=== PATIENT | male | born 1995 | race Native Hawaiian/Other Pacific Islander ===

== ENCOUNTER 2016-11-04 01:37 | Emergency (ER) | payer OTHER ==
[2016-11-04 01:46] VITALS: TEMP 98.4
--- NOTE | 2016-11-04 01:57 | C.PDOC ---
History Of Present Illness 20 y/o male arrives in the ED for suicidal ideation. The patient had sent a text to his friend that he is suicidal and the friend dialed 911. Patient states "THEY SAID I WAS SUICIDAL BUT I'M REALLY NOT". Patient admits to ETOH use today, last drink was several hours ago. The patient denies being suicidal or drug abuse. "THEY SAID I WAS SUICIDAL BUT I'M REALLY NOT". PS WAS TEXTING THAT HE IS SUICIDAL AND FRIEND CALLED 911. +ETOH, LAST DRINK SEV HRS AGO. DENIES BEING SUICIDAL, DRUG USE EXAM PSYCH CALM COOPERATIVE NO ACTIVE SI, PSYCHOSIS NO ACUTE INTOX REMAINDER NEG Time Seen by Provider: 11/04/16 01:47 Chief Complaint (Nursing): Psychiatric Evaluation History Per: Patient History/Exam Limitations: no limitations Onset/Duration Of Symptoms: Hrs Current Symptoms Are (Timing): Still Present Suicide/Self Injury Attempted (Context): None Modifying Factor(s): None Recent travel outside of the [place]: No Past Medical History Reviewed: Historical Data, Nursing Documentation, Vital Signs Vital Signs: Last Vital Signs Temp 98.4 F 11/04/16 01:43 Pulse 84 11/04/16 06:14 Resp 18 11/04/16 06:14 BP 149/82 11/04/16 06:14 Pulse Ox 99 11/04/16 06:14 - Medical History PMH: Anxiety, Bipolar Disorder Surgical History: No Surg Hx Family History: States: No Known Family Hx - Social History Hx Alcohol Use: Yes Hx Substance Use: No - Immunization History Hx Tetanus Toxoid Vaccination: No Hx Influenza Vaccination: No Hx Pneumococcal Vaccination: No Review Of Systems Except As Marked, All Systems Reviewed And Found Negative. Constitutional: Negative for: Fever, Chills, Sweats Cardiovascular: Negative for: Light Headedness Respiratory: Negative for: Cough, Shortness of Breath Gastrointestinal: Negative for: Nausea, Vomiting Neurological: Negative for: Headache, Dizziness Psych: Negative for: Suicidal ideation Physical Exam - Physical Exam Appears: Non-toxic, No Acute Distress, Other (PSYCH CALM COOPERATIVE NO ACTIVE SI, PSYCHOSIS NO ACUTE INTOX) Skin: Normal Color, Warm, Dry Head: Atraumatic, Normacephalic Oral Mucosa: Moist Neck: Supple Chest: Symmetrical Cardiovascular: Rhythm Regular Respiratory: Normal Breath Sounds, No Rales, No Rhonchi Gastrointestinal/Abdominal: Soft, No Tenderness, No Guarding, No Rebound Extremity: Normal ROM, Capillary Refill (<2sec.) Neurological/Psych: Oriented x3, Normal Speech, Normal Cognition Gait: Steady ED Course And Treatment - Laboratory Results Result Diagrams: 11/04/16 02:15 11/04/16 02:15 O2 Sat by Pulse Oximetry: 98 (RA) Reevaluation Time: 03:29 Reassessment Condition: Unchanged Medical Decision Making Medical Decision Making: Plain * UA * blood work * , drug test * crisis is notified Disposition Counseled Patient/Family Regarding: Diagnosis, Need For Followup - Disposition Referrals: [facility] [Outside] [facility] [Outside] [facility] [Provider Group] Disposition: HOME/ ROUTINE Disposition Time: 06:15 Condition: IMPROVED Instructions: Bipolar Disorder (ED) Forms: [employer] (Amharic) - Clinical Impression Clinical Impression: Alcohol intoxication, Suicidal ideation, Bipolar disorder - Scribe Statement The provider has reviewed the documentation as recorded by the Scribe (Mireya Ann) Provider Attestation: All medical record entries made by the Scribe were at my direction and personally dictated by me. I have reviewed the chart and agree that the record accurately reflects my personal performance of the history, physical exam, medical decision making, and the department course for this patient. I have also personally directed, reviewed, and agree with the discharge instructions and disposition.
[2016-11-04 02:21] LABS: RBC URINE < 1 /hpf (0-3); URINE BILIRUBIN NEGATIVE (NEGATIVE); URINE BLOOD NEGATIVE (NEGATIVE); URINE COLOR Yellow (YELLOW); URINE GLUCOSE (UA) NORMAL (Normal); URINE KETONE NEGATIVE (NEGATIVE); URINE LEUKOCYTE ESTERASE NEG Leu/uL (Negative); URINE PROTEIN NEGATIVE (NEGATIVE); URINE UROBILINOGEN NORMAL mg/dL (0.2-1.0); WBC URINE < 1 /hpf (0-5)
[2016-11-04 02:22] LABS: BASO # 0.1 K/uL (0.0-0.2); BASO % 0.6 % (0.0-2.0); EOS # 0.1 K/uL (0.0-0.7); EOS % 0.8 % (0.0-4.0); HEMATOCRIT 45.1 % (35.0-51.0); LYMPH # 2.7 K/uL (1.0-4.3); LYMPH % 28.1 % (20.0-40.0); MEAN CELL VOLUME 88.5 fL (80.0-94.0); MEAN CORPUSCULAR HEMOGLOBIN 29.8 pg (27.0-31.0); MEAN CORPUSCULAR HGB CONC 33.7 g/dL (33.0-37.0); MEAN PLATELET VOLUME 7.5 fL (7.2-11.7); MONO # 0.8 K/uL (0.0-0.8); MONO % 7.9 % (0.0-10.0); NRBC % 0.1 % (0.0-2.0); RED CELL DISTRIBUTION WIDTH 13.6 % (11.5-14.5); WHITE BLOOD COUNT 9.7 K/uL (4.8-10.8)
[2016-11-04 02:28] LABS: CHLORIDE 100 mmol/L (98-107); POTASSIUM 3.4 mmol/L (3.6-5.2); SODIUM 145 mmol/L (132-148)
[2016-11-04 02:30] LABS: ALB/GLOB RATIO 1.2 (1.0-2.1); AST/SGOT 25 U/L (17-59); BILIRUBIN,TOTAL 0.5 mg/dL (0.2-1.3); CARBON DIOXIDE 24 mmol/L (22-30); GFR AFRICAN-AMERICAN > 60; TOTAL PROTEIN 7.7 g/dL (6.3-8.3)
[2016-11-04 02:31] LABS: ALCOHOL SERUM 77 mg/dl (0-10); ALKALINE PHOSPHATASE 61 U/L (38-126); ALT/SGPT 35 U/L (21-72); BLOOD UREA NITROGEN 9 mg/dL (9-20); CALCIUM 9.2 mg/dl (8.6-10.4); GLUCOSE,RANDOM 105 mg/dL (75-110)
[2016-11-04 03:29] VITALS: RESP 18
[2016-11-04 06:14] VITALS: BP 149/82; PULSE 84
[2016-11-04 06:16] VITALS: O2SAT 98
== END 2016-11-04 06:26 | disposition home or self-care (01) ==
LOC: C.ER 01:37
DX: F31.9 Bipolar disorder, unspecified (principal); R45.851 Suicidal ideations; F10.129 Alcohol abuse with intoxication, unspecified; Y90.3 Blood alcohol level of 60-79 mg/100 ml